=== PATIENT | male | born 1970 | race Caucasian/White ===

== ENCOUNTER 2017-03-28 08:59 | Inpatient (IN) ==
--- NOTE | 2017-03-27 21:07 | Discharge Summary ---
<Samara Walker - Last Filed: 03/27/17 21:05> Date of Encounter: 03/27/17 - Discharge Diagnosis (1) Status post revision of total replacement of left knee Priority: Primary Status: Acute (2) Painful total knee replacement Priority: Primary Status: Acute Qualifiers: Encounter type: initial encounter Qualified Code(s): T84.84XA - Pain due to internal orthopedic prosthetic devices, implants and grafts, initial encounter; Z96.659 - Presence of unspecified artificial knee joint (3) Depression Priority: Secondary Status: Chronic Qualifiers: Depression Type: major depressive disorder Active/Remission status: remission status unspecified (4) Obesities, morbid Priority: Secondary Status: Chronic - Discharge Medications Home Medications: Gabapentin [Neurontin] 400 mg PO TID 03/31/15 [History] Aspirin Enteric Coated [Aspirin EC] 325 mg PO DAILY #21 tablet. 03/27/17 [Rx] OxyCODONE Immed Rel [Roxicodone 5 MG] 5 - 10 mg PO Q6HR PRN #40 tablet 03/27/17 [Rx] Amitriptyline [Elavil] 10 mg PO HS 03/28/17 [History] Buprenorphine [Butrans] 1 each TP Q7D 03/28/17 [History] Bupropion HCl [Wellbutrin Xl] 300 mg PO DAILY 03/28/17 [History] Duloxetine HCl [Cymbalta] 60 mg PO BID 03/28/17 [History] Tramadol HCl [Ultram] 50 mg PO Q4H PRN 03/28/17 [History] Allergies/Adverse Reactions: 3 Allergy/AdvReac Type Severity Reaction Status Date / Time No Known Allergies Allergy Verified 03/28/17 09:44 Primary care physician: Sigifredo Riggins - Patient Status Disposition: Home, Self-Care Condition: Good - Discharge Instructions Follow Up With: Sigifredo Riggins DO [Primary Care Provider] - - Hospital Course Hospital course: Mr. Hair is a 46 year old male - Time Spent with Patient Total time spent providing and/or coordinating discharge services: <Jose Jimenez - Last Filed: 03/29/17 06:41> Date of Encounter: 03/29/17 Time of Encounter: 06:41 - Discharge Diagnosis (1) Loosening of knee joint prosthesis Priority: Primary Status: Acute Qualifiers: Encounter type: subsequent encounter Qualified Code(s): T84.038D - Mechanical loosening of other internal prosthetic joint, subsequent encounter; Z96.659 - Presence of unspecified artificial knee joint (2) Painful total knee replacement Priority: Primary Status: Acute Qualifiers: Encounter type: subsequent encounter Qualified Code(s): T84.84XD - Pain due to internal orthopedic prosthetic devices, implants and grafts, subsequent encounter; Z96.659 - Presence of unspecified artificial knee joint (3) Obesities, morbid Priority: Secondary Status: Chronic (4) Depression Priority: Secondary Status: Chronic Qualifiers: Depression Type: major depressive disorder Active/Remission status: remission status unspecified (5) Status post revision of total replacement of left knee Status: Acute Primary care physician: Sigifredo Riggins - Patient Status Functional capacity at discharge: uses cane/walker Overall status at discharge: patient is progressing back to baseline - Hospital Course Hospital course: Mr. Hair is a 46 year old male Status post revision left total knee. The patient had an uneventful postoperative course. They received antibiotics and physical therapy and were discharged in stable condition. There will follow -up in the office in 2 weeks. - Time Spent with Patient Total time spent providing and/or coordinating discharge services:
--- NOTE | 2017-03-28 09:17 | History & Physical Report ---
Date of Encounter: 03/28/17 Time of Encounter: 09:17 24 Hour HP Update - Instructions Instructions: If the History and Physical is less than 30 days old and was completed prior to A.M. admission and or procedure and has NOT been updated on calendar day of procedure please complete this update prior to performing procedure. - Update Patient reports changes in Medical Condition: No Changes in examination, assessment, or condition: No Changes in Medication: No Preop tests/diagnostics Reviewed: Yes Surgery Remains Indicated: Yes Consent for Planned Operative Procedure(s) Verified: Yes - Pre-Operative Checklist Preoperative Checklist Indicated: No Prophylactic Antibiotic Ordered: Yes Is VTE Prophylaxis Indicated?: Yes
[2017-03-28] MEDS ORDERED: Vancomycin 2,000 MG in D5% in Water 500 ML IVPB ONE (09:18)
[2017-03-28] MEDS ORDERED: Ringers Solution, Lactated 1,000 ML IVC SCH ×2 (09:30→15:10)
[2017-03-28] MEDS ORDERED: Plasma-Lyte A (PH 7.4) 1,000 ML IVC SCH (09:30)
--- NOTE | 2017-03-28 10:09 | Anesthesia Evaluation PreOp ---
Date of Encounter: 03/28/17 Time of Encounter: 10:03 - Past History Planned Operation: l tka revision Cardiac History: Denies any Significant Hx Pulmonary History: Snore, JOHNNIE Dx (noncompliant) MULE DEVELOPER History: Other (depression, ptsd) Other Medical History: Denies Any Significant HX Anesthesia History: No Prior Anesthetic Complications, Past Anesthesia (l tka, manip, cholecyst, l biceps) Alcohol Use: none Drug use: none, other Medications and Allergies Gabapentin [Neurontin] 400 mg PO TID 03/31/15 [History] Aspirin Enteric Coated [Aspirin EC] 325 mg PO DAILY #21 tablet. 03/27/17 [Rx] OxyCODONE Immed Rel [Roxicodone 5 MG] 5 - 10 mg PO Q6HR PRN #40 tablet 03/27/17 [Rx] Amitriptyline [Elavil] 10 mg PO HS 03/28/17 [History] Buprenorphine [Butrans] 1 each TP Q7D 03/28/17 [History] Bupropion HCl [Wellbutrin Xl] 300 mg PO DAILY 03/28/17 [History] Duloxetine HCl [Cymbalta] 60 mg PO BID 03/28/17 [History] Tramadol HCl [Ultram] 50 mg PO Q4H PRN 03/28/17 [History] 3 Allergy/AdvReac Type Severity Reaction Status Date / Time No Known Allergies Allergy Verified 03/28/17 09:44 - Meds/Allergy Pre-op Review Medications Reviewed: Yes Allergies Reviewed: Yes Beta Blockers on Current Med List: No Anesthesia Results - Labs Laboratory Tests 03/08/17 03/08/17 03/08/17 10:13 10:13 10:13 Hgb 14.3 Hct 43.9 Plt Count 186 PT 11.1 INR 1.0 APTT 32.2 Sodium 144 Potassium 3.8 Creatinine 1.01 Anesthesia Exam O2 Sat Height 1.85 m Height 1.85 m Height 1.85 m Weight 150.593 kg Weight 150.593 kg Weight 150.593 kg O2 Sat by Pulse Oximetry 95 Vital Signs Temp Pulse Resp BP Pulse Ox 97.9 F 81 18 142/95 95 03/28/17 09:38 03/28/17 09:38 03/28/17 09:38 03/28/17 09:38 03/28/17 09:38 Height: 1.85 Weight: 150 NPO (# of Hours): >8 - HEENT Pupil (Motor): Pupils equal, EOMI Mallampati: II Teeth: Normal Oral Opening: Greater than 3 (poor underbite) - MULE DEVELOPER LOC: Oriented MULE DEVELOPER Motor: Normal RUE, Normal LUE, Normal RLE, Normal LLE, Normal Face MULE DEVELOPER Sensory: Normal: RUE, LUE, RLE, LLE, Face - Cardiac Rhythm: Regular Murmur: None - Pulmonary Breath Sounds: bilateral Clear Respiratory Effort: Symmetrical Anesthesia Assess/Plan ASA Score: 3 Modified Michael Scale for Level of Consciousness: Cooperative, oriented, and tranquil Anesthetic Plan: General, Regional Monitoring Plan: Standard Monitors Recovery Plan: PACU
[2017-03-28] MEDS ORDERED: CloNIDine Patch 0.1 MG PATCH (WEEKLY) TD SCH (10:15)
--- NOTE | 2017-03-28 10:34 | Physician Discharge Referral ---
ExtendedCare Referral Info Transfer To: [facility] Provider in Charge: Provider in Charge after Transfer: PCP Institutional Level of Care: Skilled - Diagnosis (1) Status post revision of total replacement of left knee Priority: Primary Status: Acute (2) Painful total knee replacement Priority: Primary Status: Acute (3) Depression Priority: Secondary Status: Chronic (4) Obesities, morbid Priority: Secondary Status: Chronic Expected Duration of Placement: < 30 days Prognosis: Good Aware of Diagnosis: Patient Aware of Prognosis: Patient - Transfer Medications Prescriptions: OxyCODONE Immed Rel [Roxicodone 5 MG] 5 - 10 mg PO Q6HR PRN #40 tablet PRN Reason: Pain Aspirin Enteric Coated [Aspirin EC] 325 mg PO DAILY #21 tablet. Home Medications: Gabapentin [Neurontin] 400 mg PO TID 03/31/15 [History] Aspirin Enteric Coated [Aspirin EC] 325 mg PO DAILY #21 tablet. 03/27/17 [Rx] OxyCODONE Immed Rel [Roxicodone 5 MG] 5 - 10 mg PO Q6HR PRN #40 tablet 03/27/17 [Rx] Amitriptyline [Elavil] 10 mg PO HS 03/28/17 [History] Buprenorphine [Butrans] 1 each TP Q7D 03/28/17 [History] Bupropion HCl [Wellbutrin Xl] 300 mg PO DAILY 03/28/17 [History] Duloxetine HCl [Cymbalta] 60 mg PO BID 03/28/17 [History] Tramadol HCl [Ultram] 50 mg PO Q4H PRN 03/28/17 [History] Allergies/Adverse Reactions: 3 Allergy/AdvReac Type Severity Reaction Status Date / Time No Known Allergies Allergy Verified 03/28/17 09:44 - Respiratory Orders None Smoking Cessation: Smoking cessation has been advised. For more information, call the [place] Tobacco Quit Line at 1-024-ZPYS-NOW. - Ancillary Orders May use pressure relief devices daily prn, May go on ROSENDO w/family/respon libertarian w /meds at nurse discretion PRN, May consult with Dentist, Yield Loss Inspector, Exercise Specialist PRN - Mobility Orders Chair, Ambulate - Rehabiliation Orders Rehab Potential: Good Rehab Orders: ROM Exercises, Evaluation for Physical Therapy, Evaluation for Occupational Therapy Other: Left Knee: Opsite placed. Keep dressing intact until first follow up appointment. If > 50% saturated,notify office, remove dressing and place appropriate dressing back in place. Dressing is water resistant, not water-proof. OK to shower, but do not get dressing wet. Isadora in place, to be removed at POD#14-16. - Treatments Skin tear care topically daily PRN per policy List/Other: PT/OT. WBAT to affected extremity. Follow Total Knee Precautions x 6 weeks. Stay in brace at night only. Plan to discontinue brace after first post- operative appointment. ICE and elevate extremity frequently throughout the day. Encourage ambulation exercises. IS 10x/hour - Diet Orders Regular CERTIFICATION: I certify that the transfer of the above named patient to an Extended Care Facility is necessary for the continuing treatment of the diagnosis listed. The above information is true and accurate reflection of patient's current condition. Confidential - Redisclosure prohibited without a patient's written consent.
[2017-03-28] MEDS ORDERED: ROPIVACAINE HCL/PF 0.5% 30 ML VIAL ONE (11:08)
[2017-03-28] MEDS ORDERED: Tetracaine/PF 20 MG/2 ML AMPUL ONE (11:08)
[2017-03-28] MEDS ORDERED: Bupivacaine/Clonidine Syringe 1 EACH SYRINGE ONE (11:09)
[2017-03-28] MEDS ORDERED: *HR* Propofol 200 MG/20 ML VIAL IVP ONE ×2 (11:33→12:09)
[2017-03-28] MEDS ORDERED: Lidocaine -MPF 4% 5 ML AMPUL ONE (11:33)
--- NOTE | 2017-03-28 11:36 | Anesthesia Procedures ---
Date of Encounter: 03/28/17 Time of Encounter: 11:34 Procedures: Anesthesia - Nerve Block Procedure Date: 03/28/17 Time: 11:30 Allergies/Adv Reactions: nkda Pre-op Diagnosis: h/o L TKA Surgical Procedure: L TKA, revision Checklist: Correct Patient Identifier, Correct procedure, History checked Correct side: Left Blood Thinner: No Monitor Applied: EKG, BP, Pulse Oximetry Supplemental Oxygen via Nasal Cannula (L/min): 3 Sedation: Versed (mg): 4 Sedation: Fentanyl (mcg): 100 Indication: Post Op Analgesia (requested by Dr. Jimenez) Pre-op Neuro Deficits: No Block Type: Supraclavicular Catheter placed: No Sterile Technique: Yes Ultrasound used: Yes Anatomy identified: Yes Visual spread of Local: Yes Neuro Stimulation: Yes Nerve Stimulator Range: 0.2 - 0.4 mA Blood on Needle Aspiration: No Smooth Injection of Local: Yes Pain with Injection of Local: No Prep: Chlorhexadine Needle: 22 x 50 mm Stimuplex (for femoral n. block), 21 x 100 mm Stimuplex (for iPACK block) Local: 0.25% Bupivicaine w/Clonidine 20 mcg/cc (20mL for iPACK block), Tetracaine (2mL 1% for femoral n. block), Ropivacaine (30mL of 0.5% for femoral n. block) Number of Attempts: 1 Complications: None/effective block Vitals: please see Priya HALL's documentation
[2017-03-28] MEDS ORDERED: *HR* Promethazine 25 MG/ML VIAL IVP PRN (11:37)
[2017-03-28] MEDS ORDERED: *HR* Rocuronium Bromide 50 MG/5 ML VIAL ONE (11:37)
[2017-03-28] MEDS ORDERED: *HR* HYDROmorphone (PF) 1 MG/ML SYRINGE IVP PRN ×2 (11:37→15:10)
[2017-03-28] MEDS ORDERED: Ondansetron 4 MG/2 ML VIAL IVP PRN ×2 (11:37→15:10)
[2017-03-28] MEDS ORDERED: *HR* FentaNYL (PF) 100 MCG/2 ML VIAL ONE ×2 (11:46→12:09)
[2017-03-28] MEDS ORDERED: Lidocaine -MPF 2% 2 ML VIAL ONE (12:09)
[2017-03-28] MEDS ORDERED: *HR* Midazolam HCl 2 MG/2 ML VIAL ONE ×2 (12:09)
[2017-03-28] MEDS ORDERED: *HR* Succinylcholine 200 MG/10 ML VIAL IVP ONE (12:09)
--- NOTE | 2017-03-28 13:10 | Orthopedic Operative Note ---
Date of procedure: 03/28/17 Pre-op diagnosis: Aseptic loosening left total knee Post-op diagnosis: same Procedure: Procedure: Left revision total knee Estimated blood loss: 1000 mL Hardware: Metal and polyethylene replacement. Biomet SSK femur: 65, 18 x 120 Tibia: 79, 14 x 120 Constrained Barbra: 16 Exam Under anesthesia: Full extension and flexion to 90 degrees well healed incision. Swelling or erythema. Procedural Notes: No abnormal fluid Gram stain negative for bacteria loose tibia. Operative procedure: The patient was brought to the operating room and placed on the operating room table. After general anesthesia was administered the operative knee was examined. Findings were noted in the exam under anesthesia. The operative extremity was prepped and draped in sterile surgical fashion. The patient received IV antibiotics prior to skin incision. A standard midline incision was made centered over the patella through the old incision. The incision was made through the skin and subcutaneous tissue. A medial parapatellar tendon approach was performed. Care was taken to preserve tissue along the medial aspect of the patella. And to protect the patella tendon. The deep MCL was released off the medial tibia. The infra patella fat pad was excised. Fluid was encountered this was normal joint fluid, Cultures were obtained and gram . The knee was brought into flexion the poly-was removed. The interface between the patient's femoral component and distal femur were disrupted with a osteotome and oscillating saw. Femoral component was removed removed without significant bone loss. Attention was then turned to the tibial component. The same technique was used to remove the tibial component by disrupting the interface between the patient's tibial component and the patients proximal tibia. The tibial component was loose, was removed without significant bone loss. The tibia was sized to a 79 it was reamed up to a 14 x 120 Trial had good fit and fixation. The femur was sized to a 65, was reamed up to a 18 x 120 The finishing guide was seated and the box cut was made. The trial had good fit and fixation. Both trial components were seated and the 16th constrained Barbra was seated and secured. The knee had full flexion and full extension with no instability. Patella had excellent patella tracking. The trial components were removed. The knee sat for 2 minutes with a Betadine saline solution. It was irrigated out with 2 L of pulse irrigation. The components were assembled on the back table, the tibia cemented first followed by the femur. The 16 constrained liner was seated and secure. The knee was brought to full extension while the cement hardened. . After the cement hardened the knee was irrigated out again. The PA closed the knee. The extensor mechanism was closed with a running #2 Fiberwire suture and a running #2 PDS suture. The deep tissue was irrigated and closed deep with #1 PDS suture superficially with 0 PDS suture. The skin was closed with skin baudilio. The patient was placed in a sterile dressing and postoperative brace. They were extubated and transferred to recovery room in stable condition. Anesthesia: GUERO Surgeon: Jose Jimenez Molder Offbearer: Matilde Johnson Condition: stable Disposition: PACU
[2017-03-28] MEDS ORDERED: Ondansetron 4 MG/2 ML VIAL ONE (13:13)
[2017-03-28] MEDS ORDERED: Dexamethasone 4 MG/ML VIAL ONE (13:13)
[2017-03-28] MEDS ORDERED: *HR* HYDROmorphone 2 MG/ML SYRINGE ONE (13:27)
[2017-03-28 14:18] LABS: Hematocrit 40.8 % (37.5-50.1); Hemoglobin 13.4 g/dL (12.9-16.9)
--- NOTE | 2017-03-28 14:27 | Anesthesia Evaluation Post Op ---
Date of Encounter: 03/28/17 Time of Encounter: 14:24 - Vital Signs Vital Signs: vss - Lungs Lungs: Clear Ascult./Percussion - Airway Airway: Non-obstructed - Cardiovascular Baseline Rhythm - Mental Status Mental Status: Alert & Oriented, Answers Appropriately - Pain Pain Scale used: Gil (Faces) - Nausea Vomiting Nausea Vomiting: Not Present - Hydration Hydration: Ice chips Notes: 03/28/17 14:26 continuous pulse ox ordered - Discharge PostOp Status: Transfer Patient to floor
[2017-03-28] MEDS ORDERED: Sennosides 8.6 MG TABLET PO PRN (15:10)
[2017-03-28] MEDS ORDERED: MOM Conc 10 ML UD.LIQ PO PRN (15:10)
[2017-03-28] MEDS ORDERED: Naloxone 0.4 MG/ML INJ IVP PRN (15:10)
[2017-03-28] MEDS ORDERED: *HR* OxyCODONE Immed Rel 5 MG TABLET PO PRN (15:10)
[2017-03-28] MEDS ORDERED: Temazepam 15 MG CAPSULE PO PRN (15:10)
[2017-03-28] MEDS ORDERED: traMADol 50 MG TABLET PO PRN (15:10)
[2017-03-28] MEDS: *HR* OxyCODONE Immed Rel 5 MG TABLET PO PRN ×2 (15:46→20:34)
[2017-03-28] MEDS: *HR* Enoxaparin 30 MG/0.3 ML SYRINGE SQ SCH (16:34)
[2017-03-28] MEDS: Gabapentin 400 MG CAPSULE PO SCH ×2 (16:35→20:34)
[2017-03-28] MEDS: ceFAZolin 3,000 MG in D5% in Water 100 ML IVPB SCH ×2 (17:27→23:34)
[2017-03-28] MEDS ORDERED: *HR* Enoxaparin 30 MG/0.3 ML SYRINGE SQ SCH (18:00)
[2017-03-29] MEDS: *HR* OxyCODONE Immed Rel 5 MG TABLET PO PRN ×3 (03:35→12:01)
[2017-03-29 05:39] LABS: Hemoglobin 12.5 g/dL (12.9-16.9)
[2017-03-29] MEDS: *HR* Enoxaparin 30 MG/0.3 ML SYRINGE SQ SCH (05:45)
[2017-03-29 05:54] LABS: BUN/Creatinine Ratio 13 (6-26); Blood Urea Nitrogen 14 mg/dL (8-26); Calcium 8.3 mg/dL (8.6-10.8); Carbon Dioxide 25 mEq/L (19-29); Chloride 104 mEq/L (98-109); Glucose 131 mg/dL (70-99); Osmolality,Calculated 284 (280-300); Potassium 4.9 mEq/L (3.5-4.5); Sodium 136 mEq/L (136-145); eGFR For African Americans > 60 (> 60); eGFR For Non-African Americans > 60 (> 60)
--- NOTE | 2017-03-29 06:42 | Orthopedics Progress Note ---
Date of Encounter: 03/29/17 Time of Encounter: 06:42 - Assessment and Plan (1) Loosening of knee joint prosthesis Current Visit: Yes Status: Acute Qualifiers: Encounter type: subsequent encounter Qualified Code(s): T84.038D - Mechanical loosening of other internal prosthetic joint, subsequent encounter; Z96.659 - Presence of unspecified artificial knee joint (2) Painful total knee replacement Current Visit: No Status: Acute Qualifiers: Encounter type: subsequent encounter Qualified Code(s): T84.84XD - Pain due to internal orthopedic prosthetic devices, implants and grafts, subsequent encounter; Z96.659 - Presence of unspecified artificial knee joint (3) Obesities, morbid Current Visit: No Status: Chronic (4) Depression Current Visit: Yes Status: Chronic Qualifiers: Depression Type: major depressive disorder Major depression recurrence: single episode Active/Remission status: remission status unspecified Qualified Code(s): F32.9 - Major depressive disorder, single episode, unspecified (5) Status post revision of total replacement of left knee Current Visit: Yes Status: Acute Subjective Interval history: Patient was seen this morning doing well without complaints. Afebrile vital signs stable. Operative extremity: Neurovascularly intact Dressing clean dry and intact Calves nontender Assessment and plan: Continue with postoperative care Discharged today hematocrit 39 Objective Vital signs: Vital Signs Temp Pulse Resp BP Pulse Ox 03/29/17 04:32 98.4 F 95 17 113/76 100 03/29/17 00:05 98.0 F 58 17 109/73 97 03/28/17 17:53 97.6 F 90 18 113/71 97 03/28/17 16:40 97.6 F 90 16 135/88 100 03/28/17 16:20 98 F 94 16 136/87 100 03/28/17 15:50 97.7 F 87 16 132/84 98 03/28/17 14:47 97.4 F L 83 16 137/89 99 03/28/17 14:28 98.3 F 81 16 128/67 99 03/28/17 14:18 98.7 F 94 14 127/86 96 03/28/17 14:08 87 10 126/77 96 03/28/17 13:58 86 12 122/83 95 03/28/17 13:48 98.8 F 87 16 129/67 96 03/28/17 11:23 82 16 117/78 97 03/28/17 11:20 82 16 121/72 94 03/28/17 11:00 81 18 122/70 97 03/28/17 09:38 97.9 F 81 18 142/95 95 Intake and Output 03/28/17 03/28/17 03/29/17 15:59 23:59 07:59 Intake Total 500 / 500 220 / 220 500 / 500 Output Total 1000 / 1000 440 / 440 Balance -500 / -500 -220 / -220 500 / 500 Intake: IV Fluids 500 / 500 100 / 100 Vancocin 2,000 MG In 500 / 500 Dextrose 5% 500 ML @ 250 mls/hr IVPB ONCE ONE Rx#: [id number] Ancef 3,000 MG In 100 / 100 Dextrose 5% 100 ML @ 200 mls/hr IVPB Q8H MELISSA Rx#: [id number] Oral 0 / 0 120 / 120 500 / 500 Output: Urine 440 / 440 Estimated Blood Loss 1000 / 1000 Other: Meal Dinner Percent of Meal Consumed 100% # Voids 2 Weight 150.593 kg - Labs CBC & BMP: 03/29/17 04:39 03/29/17 04:39 Labs: Abnormal lab results Hgb 12.5 g/dL (12.9-16.9) L 03/29/17 04:39 Potassium 4.9 mEq/L (3.5-4.5) H 03/29/17 04:39 Glucose 131 mg/dL (70-99) H 03/29/17 04:39 Calcium 8.3 mg/dL (8.6-10.8) L 03/29/17 04:39 - VTE Documentation of Mechanical Device: Venous foot pump, device Consult Discharge Plan - Plan Referrals: Sigifredo Riggins DO [Primary Care Provider] -
[2017-03-29] MEDS: Gabapentin 400 MG CAPSULE PO SCH ×2 (07:31→15:12)
[2017-03-29] MEDS ORDERED: BuPROPion XL (24 HR) 150 MG TABLET PO SCH (09:00)
[2017-03-29 11:26] VITALS: BP 117/77
--- NOTE | 2017-03-29 12:06 | Event Note ---
Date of Encounter: 03/29/17 Time of Encounter: 12:05 PCR - Left TKR - BWC* POD#1 Patient seen at bedside. Pain control: Yes Participating in PT. All questions and concerns addressed. Educated on use of incentive spirometer, ambulation, and hydration. Patient educated on post-operative restrictions and care. Addressed: Above D/C plan:. Home with Home Health
--- NOTE | 2017-03-29 12:51 | Physician Discharge Referral ---
Home Health/Hosp Referral Info Transfer to: Home Health Attending Provider: Provider in Charge Post Discharge: PCP - Diagnosis (1) Status post revision of total replacement of left knee Priority: Primary Status: Acute (2) Painful total knee replacement Priority: Primary Status: Acute (3) Depression Priority: Secondary Status: Chronic (4) Obesities, morbid Priority: Secondary Status: Chronic - Respiratory Orders None Smoking Cessation: Smoking cessation has been advised. For more information, call the [place] Tobacco Quit Line at 1-681-DQBE-NOW. - Dressing/Wound Care Type of Dressing/Treatments w/Frequency: Opsite dressing, leave intact until first post-operative visit. If dressing becomes >50% saturated, contact office, remove dressing and place appropriate dressing in its place. Do not allow for dressing to get wet. Isadora in place, plan to remove at post-operative day #14-16. - Diet/Nutrition Diet/Nutrition Orders: Regular - Activity Activity Orders: Up ad blanca, Ambulate - Services Needed Following services are medically necessary services: Nursing, Home Health Aide, Physical Therapy, Occupational Therapy Other Treatments: Precautions x 6 weeks Apply cold therapy wrap 3-6x/day for 20 minutes at a time. Encourage ambulation throughout the day and incentive spirometer 10x/hour. Elevate affected extremity above heart as tolerated. Brace: Wear knee immobilizer at night x 2 weeks. - Transfer Medications Home Medications: Gabapentin [Neurontin] 400 mg PO TID 03/31/15 [History] Aspirin Enteric Coated [Aspirin EC] 325 mg PO DAILY #21 tablet. 03/27/17 [Rx] OxyCODONE Immed Rel [Roxicodone 5 MG] 5 - 10 mg PO Q6HR PRN #40 tablet 03/27/17 [Rx] Amitriptyline [Elavil] 10 mg PO HS 03/28/17 [History] Buprenorphine [Butrans] 1 each TP Q7D 03/28/17 [History] Bupropion HCl [Wellbutrin Xl] 300 mg PO DAILY 03/28/17 [History] Duloxetine HCl [Cymbalta] 60 mg PO BID 03/28/17 [History] Tramadol HCl [Ultram] 50 mg PO Q4H PRN 03/28/17 [History] Allergies/Adverse Reactions: 3 Allergy/AdvReac Type Severity Reaction Status Date / Time No Known Allergies Allergy Verified 08/21/17 09:44 Certification: Further, I certify that my clinical findings support that this patient is homebound (i.e. absences from home require considerable and taxing effort and are for medical reasons or christianity services or infrequently or short duration when for other reasons) because: Homebound Reason: Post-surgery restriction and or conditions limit ability to leave home Attestation: My signature below is to certify that this patient is under my care and that I, or nurse practitioner, or a physician's research assistant member working with me, has a face-to -face encounter with this patient.
== END 2017-03-29 15:12 | disposition home or self-care (01) | DRG 467 ==
LOC: SAMDAY 08:59 → 3NENU 15:26
PROVIDERS: ADMIT Orthopaedic Surgery; ATTEND Orthopaedic Surgery

== ENCOUNTER 2020-08-25 13:59 | Inpatient (IN) ==
[2020-08-25] MEDS ORDERED: Ethanol\\Acetic Acid\\Na Ace\\Ben 1,000 ML IRRIG.SOLN IR ONE (14:05)
[2020-08-25] MEDS ORDERED: Vancomycin 1,000 MG VIAL ONE (14:05)
[2020-08-25] MEDS ORDERED: CeFAZolin Syr 3,000MG/30 ML 3,000 MG/30 ML SYRINGE IVPB ONE (14:19)
[2020-08-25] MEDS ORDERED: Ringers Solution, Lactated 1,000 ML IVC SCH ×2 (14:30→19:32)
[2020-08-25] MEDS ORDERED: *HR* Labetalol 20 MG/4 ML SYRINGE IVP PRN (15:07)
[2020-08-25] MEDS ORDERED: *HR* OxyCODONE Immed Rel 5 MG TABLET PO PRN (15:07)
[2020-08-25] MEDS ORDERED: *HR* HYDROmorphone PF 0.5 MG/0.5 ML SYRINGE IVP PRN (15:07)
[2020-08-25] MEDS ORDERED: Ondansetron 4 MG/2 ML VIAL IVP PRN ×2 (15:07→19:32)
[2020-08-25] MEDS ORDERED: ROPIVACAINE/PF/NS 0.25% 1 EACH SYRINGE INTRAART ONE (15:37)
[2020-08-25] MEDS ORDERED: *HR* Midazolam HCl 5 MG/5 ML VIAL IVP ONE (15:40)
[2020-08-25] MEDS ORDERED: TOTAL JOINT MIXTURE (100ML) INTRAART ONE (16:50)
[2020-08-25] MEDS ORDERED: Povidone-Iodine 45 ML, Sodium Chloride IRRigation 1,000 ML IR ONE (16:50)
[2020-08-25] MEDS ORDERED: Tranexamic Acid 1,000 MG/10 ML VIAL ONE (17:02)
[2020-08-25] MEDS ORDERED: *HR* Propofol 200 MG/20 ML VIAL IVP ONE (17:02)
[2020-08-25] MEDS ORDERED: Lidocaine -MPF 2% 2 ML VIAL ONE (17:02)
[2020-08-25 19:05] LABS: Hematocrit 43.1 % (37.5-50.1)
[2020-08-25] MEDS ORDERED: Dextrose Gel 15 GM/37.5 ML TUBE PO PRN ×2 (19:32)
[2020-08-25] MEDS ORDERED: D5% in Water 1,000 ML IVC PRN (19:32)
[2020-08-25] MEDS ORDERED: HYDROcodone BIT/Homatropine 5 MG TABLET PO PRN (19:32)
[2020-08-25] MEDS ORDERED: MOM Conc 10 ML UD.LIQ PO PRN (19:32)
[2020-08-25] MEDS ORDERED: Sennosides 8.6 MG TABLET PO PRN (19:32)
[2020-08-25] MEDS ORDERED: Naloxone 0.4 MG/ML INJ IVP PRN (19:32)
[2020-08-25] MEDS ORDERED: *HR* Promethazine 25 MG/ML VIAL IM PRN (19:32)
[2020-08-25] MEDS ORDERED: *HR* Dextrose 50 % in Water (Vial) 50 ML VIAL IVP PRN (19:32)
[2020-08-25] MEDS: OXYCODONE MYRISTATE 36 MG PO SCH (20:56)
[2020-08-25] MEDS: Insulin LISPRO 300 UNITS/3 ML VIAL SUBQ SCH (20:57)
[2020-08-25] MEDS ORDERED: cloNIDine HCL 0.1 MG TABLET PO SCH (21:00)
[2020-08-25] MEDS: *HR* OxyCODONE Immed Rel 5 MG TABLET PO PRN (21:00)
[2020-08-25] MEDS ORDERED: Insulin LISPRO 300 UNITS/3 ML VIAL SUBQ SCH (21:00)
[2020-08-25] MEDS: Ascorbic Acid 500 MG TABLET PO SCH (21:02)
[2020-08-25] MEDS: ceFAZolin 3,000 MG in 0.9 % Sodium Chloride 100 ML IVPB SCH (22:01)
[2020-08-26 02:43] LABS: Basophils % 0.2 %; Hemoglobin 13.3 g/dL (12.9-16.9); Immature Granulocytes % 0.4 % (0-4); Lymphocytes # 0.8 K/mcL (0.6-4.6); Lymphocytes % 6.9 %; Mean Corpuscular HGB Conc 31.7 g/dL (31.6-35.5); Mean Corpuscular Hemoglobin 29.9 pg (28.0-33.3); Mean Corpuscular Volume 94.4 fL (83.0-100.0); Mean Platelet Volume 10.1 fL (9.4-12.4); Monocytes # 0.6 K/mcL (0.0-1.3); Monocytes % 5.2 %; Neutrophils # 10.5 K/mcL (1.6-8.9); Platelet Count 187 K/mcL (140-400); Red Blood Count 4.45 M/mcL (4.19-5.50); Red Cell Distribution Width 12.7 % (11.5-14.5); Segmented Neutrophils % 87.3 %
[2020-08-26 03:07] LABS: BUN/Creatinine Ratio 18 (6-26); Blood Urea Nitrogen 18 mg/dL (6-20); Calcium 8.2 mg/dL (8.6-10.3); Carbon Dioxide 21 mEq/L (23-29); Chloride 107 mEq/L (98-107); Glucose 165 mg/dL (70-105); Osmolality,Calculated 294 (280-300); Potassium 3.9 mEq/L (3.5-5.1); Sodium 139 mEq/L (136-145); eGFR For African Americans > 60 (> 60); eGFR For Non-African Americans > 60 (> 60)
[2020-08-26] MEDS: ceFAZolin 3,000 MG in 0.9 % Sodium Chloride 100 ML IVPB SCH (04:58)
[2020-08-26] MEDS: Ascorbic Acid 500 MG TABLET PO SCH (07:59)
[2020-08-26] MEDS: OXYCODONE MYRISTATE 36 MG PO SCH (08:00)
[2020-08-26] MEDS: *HR* OxyCODONE Immed Rel 5 MG TABLET PO PRN (08:00)
[2020-08-26] MEDS: Insulin LISPRO 300 UNITS/3 ML VIAL SUBQ SCH ×2 (08:01→11:29)
[2020-08-26] MEDS ORDERED: Multivit/Ca/Min/Fe/FA 1 TAB TABLET PO SCH (09:00)
[2020-08-26] MEDS ORDERED: Aspirin Enteric Coated 81 MG Tablet PO SCH ×2 (09:00)
[2020-08-26 10:21] VITALS: BP 123/80
[2020-08-26 14:39] LABS: Bilirubin,Urine Negative (Negative); Blood,Urine Negative (Negative); Clarity,Urine Clear (Clear); Color,Urine Yellow (Yellow); Glucose,Urine (UA) Normal (Normal); Ketones,Urine Trace mg/dL (Negative); Leukocyte Esterase,Urine Negative (Negative); Nitrite,Urine Negative (Negative); PH,Urine 5.5 pH Units (5.0-8.0); Protein,Urine Trace mg/dL (Neg-Trace); Specific Gravity,Urine > 1.030 (1.010-1.025); Urobilinogen,Urine Normal (Normal)
[2020-08-26] MEDS ORDERED: *HR* OxyCODONE ER (12 HR) 40 MG TABLET PO SCH (21:00)
== END 2020-08-26 17:50 | disposition home or self-care (01) | DRG 467 ==
LOC: SAMDAY 13:59 → 3NENU 19:17
PROVIDERS: ADMIT Orthopaedic Surgery; ATTEND Orthopaedic Surgery